=== PATIENT | female | born 1965 | race Caucasian/White ===

== ENCOUNTER → 2023-08-18 08:45 | Outpatient (BNV) | payer OTHER, SELFPAY | PROVIDERS: Visit Provider Psychiatry & Neurology Psychiatry | DX: F31.77 Bipolar disorder, in partial remission, most recent episode mixed (principal); F43.10 Post-traumatic stress disorder, unspecified | CPT/HCPCS: 90792; 99213; 99214 ==

== ENCOUNTER 2023-08-26 08:00 | Outpatient (RCR) | payer OTHER, SELFPAY ==
--- NOTE | 2023-08-17 10:15 | HO.PHP ---
Anna pulled [facility] staff member jamee after group one, in which she noted feeling stressed out and overwhelmed from that group. [facility] staff member explored with Anna what triggered the response. Anna noted that she does not relate to what others are discussing and is uncertain if this will be a good fit for her. Anna noted she was under the impression that this program was for bipolar. [facility] staff member acknowledged what Anna was saying and encouraged her to see how the program goes the remainder of the day. PHP staff member also suggested that she addresses what brought her to the program. Anna noted that she does want to meet with the doctor and see how that goes.
[2023-08-17 13:49] VITALS: BMI 26.5
--- NOTE | 2023-08-17 17:40 | HO.PHP ---
Anna pulled [facility] staff member aside after group two to review with the clinician her state of anxiety and feeling overwhelmed with how the program is going so far. PHP staff member was receptive and engaged in conversation with Anna around her concerns. Anna informed the clinician that she came to the program because of recently receiving insight on a new diagnosis of bipolar. Anna expressed that she is not feeling that she can relate and feels other individuals mental health is more severe then hers. [facility] staff member encouraged Anna while in [facility] to focus on what brought her to the program and what she would like to work on here. Anna disclosed that she can't due to legal implications that would come if she spoke. PHP staff member was receptive. Anna expressed that she would like to be in a group with individuals who experienced something similar and she is unable to relate. Anna asked if groups are similar to how they were today. PHP staff member noted that they are but the first process group is group members discussing what they are currently experiencing and what they want to work on. PHP staff member voiced if she does not relate to them that is okay because everyone is here for their own individual reasons. Anna was receptive and stated that she is not feeling right about this program. PHP staff member was receptive and informed her that if she does not feel this program is a good fit then she needs to let the staff know, so we can provide her with the appropriate resources. Anna was receptive and voiced that she will need an OP therapist. [facility] staff member was receptive and provided her with suggestions for referrals. Anna agreed and noted that she currently has to meet with the provider here and will let the team know her decision. PHP staff was in agreement.
--- NOTE | 2023-08-17 17:46 | HO.PHP ---
[facility] staff member followed up with Anna to provide her with a release and information around OP therapist who accept her insurance. Anna asked questions around services. PHP staff expressed that if she is looking for an OP therapist who specializes in Bipolar the wait list is long. PHP staff stated that she can provide her with a referral to [facility] and she can contact the OP therapist who accept her insurance in the mean time to be put on a waitlist. Anna was receptive. Anna is going to do further research on [facility] prior to signing the release of information. Anna stated that next Thursday she will be going to visit her mother but expressed concerns around not being able to complete the 10 days. Anna expressed the importance of seeing her mother since she has a terminal diagnosis. PHP staff voiced that she can discharge from the program that and noted if she feels she needs additional time to contact [facility] to schedule an appointment, when she is in a better place to focus on treatment. Anna was receptive. Anna asked some additional questions about group, in which PHP staff provided her with insight. Anna was in agreement. Fransisca came to get Anna for her assessment portion at this time. [facility] staff encouraged Anna to reach out to her if she has any additional questions. Anna was receptive.
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
--- NOTE | 2023-08-18 12:05 | PC.ADMIT ---
08/17/23 Patient unable to complete the assessment as she has an appointment with her therapist at 1400 today. Patient is a 57 year old single female who was referred to [facility] by her psychiatrist. 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 Patient reports she has experienced many losses recently in addition to her mother who is currently dying which is contributing to her symptoms. She reports feeling much guilt and shame, grief, and self criticism. She is also concerned about finances since being let go from her job. Patient is alert and oriented x4. She is currently struggling with depression sxs. Reports passive SI, denying any plans or intent to kill herself. She does present with depressed mood and anxious affect. She was given a copy of her safety plan if needed. Patient reports 10 lb weight loss with decrease in appetite. Medications reconciled with patient and patient's pharmacy. She reports taking medications as prescribed.
--- NOTE | 2023-08-18 12:22 | PC.NURSE ---
Anna scheduled an appointment with her PCP for annual physical including PAP test for February 03, 2024 at 12:30 pm while in my office. She also called her director correctional agency for a PAP test, as she is overdue, however was told that she has not been seen in the office for 3 years and was told she was not a patient anymore in addition to the office is not taking on any new patient's at this time however they are planning on calling her back to confirm this.
[2023-08-18 12:45] VITALS: BP 130/80; PULSE 80; TEMP 37.2
--- NOTE | 2023-08-18 15:48 | HO.PHP ---
PHP staff member met with Anna to have her sign a release for OP therapy through [facility]. Anna asked again what this was for. PHP staff reminded her of the conversation held previous day. Anna was receptive. Anna talked about her dislikes of the program and feeling overstimulated in the group settings. PHP staff member explored if this program is a good fit for her if this is causing her to feel worse. Anna disclosed that she likes the psychiatrist and resources but does not like the groups due to absorbing too much of what others are saying. PHP staff asked if she is having a challenging time what others are saying and being able to focus on what brought her here. Anna mentioned it is very challenging for her. PHP staff member asked Anna what she is hoping she can get from the program. Anna expressed the psychiatry and resource portion again. [facility] staff encouraged her to take it one day at a time and if she is feeling overwhelmed in group to utilize coping skills such as taking a break. Anna was receptive. Anan was able to return to group.
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
--- NOTE | 2023-08-19 12:28 | HO.PHP ---
PHP staff member faxed a referral to [facility] for Anna for OP therapy. PHP staff member is awaiting a phone call back with those appointments.
--- NOTE | 2023-08-20 14:50 | HO.PHP ---
Client's case has been opened and reviewed in treatment team.
--- NOTE | 2023-08-21 23:47 | P.PNPSP_ITS ---
Subjective Subjective Date of Service: 08/21/23 Reason For Visit: bipolar,PTSD Interim History: Patient requesting to speak with provider. She feels there is pertinent historical details she would like to share with insurance writer regarding past relationships and other remote personal history, family of origin history and formative years. She was provided some space to share, but eventually needed to be redirected toward current issues and presentation. She presents as calmer, less intense, still expansive but less defensive and more redirectible and agreeable. She reports her mood as depressed, anxious I am feeling a little lower today , she says she lowered the dose of Depakote to 750 mg/d and says this has not caused her any exacerbation in insomnia or irritability. I advise we stay at current dose without further decrease for over the extended holiday weekend, . Patient disagrees I dont think it's the meds noting that she was just engaged in talks with some of the other patients today there's a lot of grief out there, as well as my own . She does appear to be settling into groups more, is less critical and more open to feedback. She has a list of tasks she plans to work on this weekend. I have the daunting task of structuring my life... I dont have a family or any friends or supports to help me with things . She expresses gratitude for the program, even though she still has a number of general non-specific complaints about some of the other patients and policies. She denies any h/h/SI. Sleeping 6 hours, appetite gradually improving (eating 2- 3 meals/d), weight is stable. Energy good. Denies any current symptoms of luciano, she still presents with some impairment in processing (namely executive dysfunction) which I suspect is not her baseline (given patient's description of baseline intellectual functioning). I also referenced reviews of her published book on [employer]. I share these thoughts and patient agrees that this makes sense, as she is having some issues with focus and organization (especially noting that ADLs, organizing her house as well as planning around work-issues has been more difficult for her to navigate than expected, and feels reassured that this is unlikely a permament change, more likely she is still recovering from the cognitive effects and impairment that is associated with having been in a manic/decompensated state for some time. I would expect that she will gradually recover her previous baseline as long as she prioritizes her care, selfcare and maintains compliance with her meds in order to optimize treatment outcomes. . She reluctantly agrees to maintain her current dose of Depakote, even though she is desperate to get off of it because of concerns of hair loss. She also needs to get over to the lab to get pending blood work done. We will plan to resume cross taper and plan to start lithium once we return to program after holiday. Mental Status Exam Mental Status Exam Narrative: Alert, oriented, in no acute distress. Variable comparability, engagement. Some intensity. No psychomotor agitation or neurovegetative retardation. Eye contact maintained. Mood anxious, affect variable, mood congruent. Speech normal. Thought process tangential, but coherent, no FOI or SILVIA. Thought content related to stressors, rumination, denies any helplessness, hopelessness or SI. No aggressive ideation or HI. No paranoia or delusional content elicited. No evidence of psychosis. Insight impaired but improving, judgment fair but adequate. Diagnostics Vital Signs (24Hr): BMI result Body Mass Index 26.5 Assessment & Plan Assessment & Plan (1) Bipolar disorder, in partial remission, most recent episode mixed: Status: Acute Code(s): F31.77 - Bipolar disorder, in partial remission, most recent episode mixed (2) Complex posttraumatic stress disorder: Status: Acute Code(s): F43.10 - Post-traumatic stress disorder, unspecified Plan continue Depakote 750 mg/d (plan to cross taper due to adverse effects, patient preference concerning [facility] risks) plan to switch over to lithium or other atypical mood stabilizer for maintenance management of Bipolar I and be reasonably sustainable (optimize benefit vs risk ratio) continue Seroquel 100-200 mg qhs PRN sleep may take additional 50-100 mg qd PRN agitation routine lab work to be done - will check TFTs, renal function prior to starting [place] continue to monitor Patient educated on: diagnosis and medication risk/benefits Informed Consent: understands Reason for contiued partial hosp. stay Substantial Risk for: inability to function, rapid decompensation and med/psych decompensation Certification I certify that partial hospital treatment is medically necessary due to the symptoms and problems resulting from the patient's mental illness and the failure to treat the patient at the partial hospital level of care would likely result in the patient requiring inpatient psychiatric care which could not be prevented at a less intensive level of care. Total time managing care of this patient today __60__ minutes. Discharge Plan Discharge Attending provider: Jane Fernandez Medications: New lamotrigine 25 mg tablet See Rx Instructions .ROUTE .COMPLEX 42 Days Qty: 100 0RF Rx Instructions: take 1 tablet po daily for 2 weeks, then increase to 2 tablets po daily for 2 weeks, then increase to 3 tablets daily lithium carbonate 300 mg tablet 300 mg PO BEDTIME Qty: 20 0RF Changed divalproex [Depakote ER] 250 mg tablet extended release 24 hr See Rx Instructions .ROUTE .COMPLEX 15 Days Qty: 45 0RF Rx Instructions: take 1 tablet po QAM and take 2 tablets po QHS No Action quetiapine 25 mg tablet 25 - 50 mg PO DAILY PRN (Reason: anxiety-irritablity) Rx Instructions: Take daily in the evening. quetiapine 100 mg tablet 100 - 200 mg PO BEDTIME PRN (Reason: irritability-anxiety) alprazolam 0.25 mg tablet 0.25 mg PO BID divalproex [Depakote ER] 500 mg tablet extended release 24 hr 500 mg PO BID Stand Alone Forms: Patient Portal Discharge page Patient Education: Bipolar Disorder (GEN)
--- NOTE | 2023-08-25 14:44 | HO.PHP ---
[facility] staff member met with Anna due to her requesting to meet. Anna talked about her concerns regarding her mothers health and continuing in the program. nAna expressed feeling uncertain to what she wants to do at this point. Anna voiced she would like clarification on her mothers health before she makes that decision. [facility] staff member reassured Anna if she would like to go see her mother and it is important to her, then she should. [facility] staff member stated that she could always return to the program when she feels the timing is more appropriate. Anna appeared receptive and wanted to explore when she would be able to see when she can come back to the program. Anna shared that she wants to meet with the psychiatrist as well. [facility] staff member brought Anna to [facility], in which Laly told her that they are filling slots up until the end of September if she would like to return. Anna was receptive. Anna continued to voice that she would like to meet with the doctor to regarding her medication since she needs refills and does not want to leave without those. [facility] staff member was receptive and stated that she will follow up with her regarding that. Anna was receptive and also asked about OP therapy. [facility] staff noted she placed the referral and will follow up to gather those appointment times. Anna was in agreement.
--- NOTE | 2023-08-25 20:21 | P.PNPSP_ITS ---
Subjective Subjective Date of Service: 08/25/23 Reason For Visit: bipolar,PTSD Interim History: Patient seen for follow-up. She reports that her mother went into hospice care over the weekend and that she has been maintaining close communications with her step-father as well as the providers in charge of her mother's care. She has spoke with [facility] staff about her need to be at her mother's deathbed. She has plans to travel to [place] tomorrow and has already spoke with staff about disch arging at the end of program today. She otherwise appears to be managing herself and her affairs well. She in fact notes this as well and is suprised she is remaining calm and focused. She is eager to switch off of the Depakote due to anticipatory concerns for hair loss. For the time being, I ask that she holds off with medication changes (specifically cross tapering off the Depakote and onto the [place]). We have already decreased her dose by 250 mg on admission, however I am concerned about making any further changes whilst she will be dealing with some stressful situations, and I relay my concerns for effectively destablizing her during such a emotionally provocative and stressful time and being far away from her treaters. SHe reluctantly agrees to hold off on any further changes. She plans to return to [facility] at some point for a new admission, and at that time we can resume medication changes. Until then, she will need to follow up with OP provider. Currently she reports mood is stable.? Denies any hopelessness or SI. Denies thoughts of harming self or others at this time. Denies any aggressive ideation or HI. Denies any paranoia or AH or VH. Sleep has been variable, disrupted at times, but getting at least 6 hours. SHe relays feeling adequately rested. Appetite, energy stable. Medication compliant, medications well-tolerated. Denies any adverse effects.?We review symptoms/signs of luciano, and review safety planning. Mental Status Exam Mental Status Exam Narrative: Alert, oriented, in no acute distress. Calm, cooperative. Mood ok stable, affect appropriate. Speech normal. Thought process goal-directed. Thought content related to stressors, future-oriented, denies any helplessness, hopelessness or SI.? No aggressive ideation or HI. No paranoia or delusional content elicited. No evidence of psychosis. Insight fair but adequate, and judgment intact. Diagnostics Vital Signs (24Hr): BMI result Body Mass Index 26.5 Assessment & Plan Assessment & Plan (1) Bipolar disorder, in partial remission, most recent episode mixed: Status: Acute Code(s): F31.77 - Bipolar disorder, in partial remission, most recent episode mixed (2) Complex posttraumatic stress disorder: Status: Acute Code(s): F43.10 - Post-traumatic stress disorder, unspecified Plan Discharge from [facility] continue regular medications will defer further medication management to outpatient provider Refills sent to pharmacy Patient educated on: diagnosis, medication risk/benefits and other (contingency plans involving accessing care emergently [id number]) Informed Consent: understands Reason for contiued partial hosp. stay Substantial Risk for: stable for discharge and rapid decompensation (patient agrees to hold off from further changes and to continue with current doses of medication, as well as utilizing PRN meds. Safety plan reviewed. ) Certification I certify that partial hospital treatment is medically necessary due to the symptoms and problems resulting from the patient's mental illness and the failure to treat the patient at the partial hospital level of care would likely result in the patient requiring inpatient psychiatric care which could not be prevented at a less intensive level of care. Total time managing care of this patient today __40__ minutes. Discharge Plan Discharge Attending provider: Jane Fernandez Medications: New lamotrigine 25 mg tablet See Rx Instructions .ROUTE .COMPLEX 42 Days Qty: 100 0RF Rx Instructions: take 1 tablet po daily for 2 weeks, then increase to 2 tablets po daily for 2 weeks, then increase to 3 tablets daily lithium carbonate 300 mg tablet 300 mg PO BEDTIME Qty: 20 0RF Changed divalproex [Depakote ER] 250 mg tablet extended release 24 hr See Rx Instructions .ROUTE .COMPLEX 15 Days Qty: 45 0RF Rx Instructions: take 1 tablet po QAM and take 2 tablets po QHS No Action quetiapine 25 mg tablet 25 - 50 mg PO DAILY PRN (Reason: anxiety-irritablity) Rx Instructions: Take daily in the evening. quetiapine 100 mg tablet 100 - 200 mg PO BEDTIME PRN (Reason: irritability-anxiety) alprazolam 0.25 mg tablet 0.25 mg PO BID divalproex [Depakote ER] 500 mg tablet extended release 24 hr 500 mg PO BID Stand Alone Forms: Patient Portal Discharge page Patient Education: Bipolar Disorder (GEN) Telehealth Telehealth Location of provider rendering services: other (private office) Location of patient: other ([facility]) Patient Identification confirmed using: Name, : Yes Telehealth method: video Patient verbally consented to treatment: Yes
--- NOTE | 2023-08-26 14:38 | PC.NURSE ---
Reviewed discharge medication paperwork with patient however she did not sign the discharge paperwork as there were some discrepancies. I spoke to Dr Fernandez to clarify. Per Dr Fernandez patient is to hold [place]. She is to start taking Lamotrigine 25 mg daily. Take Depakote 250 mg BID, and take Seroquel 100 mg PRN at bedtime as needed for anxiety/irritability. I called Anna and reviewed this with her. She stated that is what she remembers in her conversation with Dr Fernandez yesterday. She did appear to understand the instructions.
== END 2023-08-26 23:59 | disposition home or self-care (01) ==
LOC: HO.PHPA 08:00
PROVIDERS: Visit Provider Psychiatry & Neurology Psychiatry
DX: F31.73 Bipolar disorder, in partial remission, most recent episode manic (principal); F43.10 Post-traumatic stress disorder, unspecified; Z79.899 Other long term (current) drug therapy
CPT/HCPCS: 90791; 90853

== ENCOUNTER 2023-08-26 08:35 | Outpatient (REF) | payer OTHER, SELFPAY ==
[2023-08-26 08:54] LABS: MANUAL DIFF FLAG NO
[2023-08-26 09:16] LABS: Basophils Absolute Auto 0.1 X10*3/uL (0.0-0.2); Basophils Percent Auto 0.9 % (0-2); Eosinophils Absolute Auto 0.1 X10*3/uL (0.0-0.4); Eosinophils Percent Auto 1.9 % (0-4); Hematocrit 42.5 % (37.0-47.0); Hemoglobin 14.5 g/dl (12.0-16.0); Imm Gran Abs Auto 0.01 X10*3/uL (0.00-0.03); Imm Gran Pct Auto 0.2 % (0.0-0.4); Lymphocytes Absolute Auto 1.7 X10*3/uL (1.2-4.9); Lymphocytes Percent Auto 31.8 % (20-40); Mean Corpuscular HGB Conc 34.1 g/dl (31.0-35.0); Mean Corpuscular Hemoglobin 30.2 pg (27.0-33.0); Mean Corpuscular Volume 88.5 fL (80.0-98.0); Mean Platelet Volume 9.5 fL (9.4-12.3); Monocytes Absolute Auto 0.7 X10*3/uL (0.1-1.2); Monocytes Percent Auto 13.3 % (2-11); Neutrophils Absolute Auto 2.8 x10*3/uL (2.0-8.3); Neutrophils Percent Auto 51.9 % (45-73); Platelet Count 228 X10*3/uL (160-400); White Blood Count 5.3 X10*3/uL (4.8-10.8)
[2023-08-26 09:25] LABS: Estimated Average Glucose 94 mg/dL; Hemoglobin A1c % 4.9 % (<6.0)
[2023-08-26 09:41] LABS: Valproate 25.2 mcg/mL (50.0-100.0)
[2023-08-26 09:47] LABS: Alanine Aminotransferase 22 U/L (0-31); Albumin Level 4.1 g/dL (3.5-5.0); Alkaline Phosphatase 53 U/L (39-117); Anion Gap 11 (12-20); Aspartate Amino Transferase 16 U/L (5-31); Bilirubin Total 0.5 mg/dL (0.0-1.0); Blood Urea Nitrogen 18 mg/dL (9-16); Calcium 9.4 mg/dL (8.4-10.2); Carbon Dioxide 31 mmol/L (22-29); Chloride 107 mmol/L (96-108); Cholesterol 209 mg/dL (<200); Estimated Glomerular Filt Rate > 60; Glucose Fasting 80 mg/dL (60-99); HDL Cholesterol 50 mg/dL (>40); LDL Cholesterol Calculated 132 mg/dL (<100); Magnesium 2.1 mg/dL (1.6-2.6); Potassium 4.4 mmol/L (3.3-5.1); Sodium 145 mmol/L (135-145); Total Protein 6.9 g/dL (6.5-8.0); Triglycerides 139 mg/dL (<150)
[2023-08-26 10:05] LABS: Free T4 (Free Thyroxine) 0.93 ng/dL (0.71-1.85); Thyroid Stimulating Hormone 1.22 uIU/mL (0.32-4.0)
[2023-08-26 10:09] LABS: Vitamin B12 1000 pg/mL (200-900)
== END 2023-08-26 08:36 | disposition home or self-care (01) ==
LOC: HO.LAB 08:35
PROVIDERS: Visit Provider Psychiatry & Neurology Psychiatry
DX: F31.9 Bipolar disorder, unspecified (principal); Z79.899 Other long term (current) drug therapy
CPT/HCPCS: 36415; 80053; 80061; 80164; 82607; 83036; 83735; 84439; 84443; 85025